=== PATIENT | male | born 1960 | race Asian ===

== ENCOUNTER 2017-05-26 06:41 | Day surgery (SDC) | payer OTHER ==
--- NOTE | 2017-05-25 13:47 | PREOPHP ---
DATE OF ADMISSION: 05/26/2017 REASON FOR ADMISSION: This 57-year-old patient is admitted for elective cataract surgery of the right eye. The patient states that the vision has decreased in the right eye over the past 2 years after having a retinal detachment requiring surgery in that eye. The patient denies prior history of eye disease or injury. The patient has a positive systemic history of non-insulin dependent diabetes mellitus and systemic hypertension. MEDICATIONS: 1. Metformin. 2. Losartan. 3. Aspirin (discontinued one week prior to surgery). 4. Simvastatin. ALLERGIES: THERE ARE NO KNOWN ALLERGIES. PHYSICAL EXAMINATION: On physical examination, the visual acuity with best correction is 20/40 in the right eye and 20/25 in the left eye. Slit lamp examination reveals nuclear sclerotic and posterior subcapsular cataract changes greater in the right eye than the left eye. Applanation tonometry is 15 mmHg. Examination of the retina is within normal limits. DIAGNOSIS: Cataract right eye. PLAN: Cataract extraction with lens implant, right eye. Dictated By: Mega Saenz MD /shamir/corinne /Document#: [id number]
[~2017-05-26] VITALS: Ht 160 cm; Wt 58.0 kg
[2017-05-26] VITALS (10 sets, daily range): BP systolic 144–178; BP diastolic 89–107; PULSE 67–75; RESP 14–19; Ht 160 cm; Wt 58.0 kg
[2017-05-26] MEDS ORDERED: TROPICAMIDE 1% 2 ML OPH RIGHT EYE SCH (07:30)
[2017-05-26] MEDS ORDERED: DICLOFENAC 0.1% 2.5 ML OPH RIGHT EYE SCH (07:30)
[2017-05-26] MEDS ORDERED: CYCLOPENTOLATE/PHENYLEPH 2 ML OPH RIGHT EYE SCH (07:30)
[2017-05-26] MEDS ORDERED: CIPROFLOXACIN 0.3% 2.5 ML OPH RIGHT EYE SCH (07:30)
[2017-05-26] MEDS ORDERED: LOSA50TA6 PO (07:50)
[2017-05-26] MEDS ORDERED: ASPI-664 PO (07:50)
[2017-05-26] MEDS ORDERED: METF500T4 PO (07:57)
[2017-05-26] MEDS ORDERED: HYALURONATE/CHONDROITIN 1ML OPH INJ ONE (08:03)
[2017-05-26] MEDS ORDERED: LIDOCAINE 4% (MPF) 5 ML INJ ONE (08:03)
[2017-05-26] MEDS ORDERED: EPINEPHrine 1 MG INJ ONE (08:03)
[2017-05-26] MEDS ORDERED: DEXAMETHASONE 4 MG/ML 1 ML INJ ONE (08:03)
[2017-05-26] MEDS ORDERED: CEFAZOLIN 1 GM INJ ONE (08:03)
[2017-05-26] MEDS ORDERED: CARBACHOL 0.01% 1.5 ML OPH INJ ONE (08:03)
[2017-05-26] MEDS ORDERED: FENTAnyl 50 MCG/ML VIAL ONE (08:34)
[2017-05-26] MEDS ORDERED: PROPOFOL 20 ML ONE (08:35)
[2017-05-26] MEDS ORDERED: HYALURONATE/CHONDROITIN 1ML OPH INJ IO ONE (09:00)
[2017-05-26] MEDS ORDERED: DEXAMETHASONE 4 MG/ML 1 ML INJ INJ ONE (09:00)
[2017-05-26] MEDS ORDERED: CEFAZOLIN 1 GM INJ INJ ONE (09:00)
[2017-05-26] MEDS ORDERED: CARBACHOL 0.01% 1.5 ML OPH INJ IO ONE (09:00)
--- NOTE | 2017-05-26 09:41 | OPR ---
Date/Time of Note Date/Time of Note DATE: 05/26/17 TIME: 09:40 Operative Report Postoperative Diagnosis same Operation/Procedure Performed cataract surgery od Surgeon: LADONNA FOOTE MD Anesthesia Type: MAC Estimated Blood Loss: none Transfusion Required: no Specimen: none Grafts/Implants lens implant Complications: no LADONNA FOOTE MD May 26, 2017 09:41
[2017-05-26] MEDS ORDERED: LABETALOL HCL 20MG INJ ONE (09:45)
[2017-05-26] MEDS ORDERED: LABETALOL HCL 20MG INJ IV PRN (09:47)
--- NOTE | 2017-05-26 09:55 | OPR ---
DATE OF OPERATION: 05/26/2017 PREOPERATIVE DIAGNOSIS: Cataract, right eye. POSTOPERATIVE DIAGNOSIS: Cataract, right eye. SURGEON: Mega Saenz MD VICE PRESIDENT OF [employer] AFFA[employer]: ANESTHESIA: Local standby. ANESTHESIOLOGIST: Austin Siu CRNA. OPERATION: Phacoemulsification with posterior chamber intraocular lens implant, right eye. PROCEDURE: The patient was brought to the operating room and placed on the table with an IV in place and the patient attached to an clinical research monitor. Oxygen was given via face mask. After some intravenous sedation was administered, local anesthesia was given using Xylocaine 2% with epinephrine, mixed with Marcaine 0.5%. This was given in a lid block and retrobulbar injection. The patient was then prepped and draped in the usual sterile manner. A wire lid speculum was inserted between the lids of the right eye. A Superblade was used to enter the anterior chamber at the corneoscleral limbus at the 10:30 o'clock position. A separate incision was made using a 3.0-mm keratome which entered the corneoscleral junction at the 12 o'clock position. Through this 3- mm opening, an irrigating cystotome was introduced into the anterior chamber. The chamber was filled with Viscoat and an anterior capsulotomy was performed. Balanced salt solution was then used for hydrodissection of the lens. A phacoemulsification handpiece was then brought into the field and introduced into the anterior chamber. The lens nucleus was emulsified using a deep groove and cracking the nucleus into quadrants. Following this, each quadrant was aspirated and emulsified at the pupillary margin. After this was completed, the irrigation/aspiration handpiece was brought to the field, introduced into the posterior chamber, and the lens cortical material was removed. When this was completed, additional Viscoat was injected into the anterior and posterior chambers. The 3-mm opening had its internal lips enlarged, and then the posterior chamber intraocular lens measuring 20.5 diopters ([employer], model LI61AO) was then injected into the posterior chamber using the lens injector system. After the leading haptic was introduced into the capsular bag and the lens optic was present in the center of the eye, the injector was removed and the trailing haptic was grasped with non-toothed forceps and introduced into the capsular fold superiorly. A [place] hook was then used to rotate the intraocular lens so that the lips were oriented in the horizontal meridian. One 10-0 nylon suture was placed across the wound. Prior to tying, the irrigation/aspiration handpiece was reintroduced into the anterior chamber to remove the Viscoat. Miochol was instilled to constrict the pupil, and then the 10-0 nylon suture was tied. The ends were cut short and then the knot was buried. Then, 0.5 mL of dexamethasone and 0.5 mL of Ancef were injected into the sub-Tenon space in the inferior fornix. Ciloxan drops were then placed on the surface of the eye. The speculum was removed and a patch was applied. The patient then left the operating room in satisfactory condition. Dictated By: Mega Saenz MD /shamir/phil /Document#: [id number]
[2017-05-26] MEDS ORDERED: ONDANSETRON 4 MG INJ IV PRN (10:00)
[2017-05-26] MEDS ORDERED: OXYCODONE/ACETAMINOPHEN (5/325) TAB PO PRN (10:00)
== END 2017-05-26 11:01 | disposition home or self-care (01) ==
LOC: SDS 06:41
PROVIDERS: ATTEND Ophthalmology
DX: H25.11 Age-related nuclear cataract, right eye (principal); E11.9 Type 2 diabetes mellitus without complications; I10 Essential (primary) hypertension
CPT/HCPCS: 66984; 82962; J0171; J0690; J1100; J3010; V2632; Z7512; Z7610

== ENCOUNTER → 2017-09-08 | Outpatient (CLI) | END | disposition home or self-care (01) ==

== ENCOUNTER 2019-03-08 05:50 | Day surgery (SDC) | payer OTHER ==
[2019-03-07 16:53] VITALS: BMI 22.2
[~2019-03-08] VITALS: Ht 157.5 cm; Wt 56.0 kg
[2019-03-08] VITALS (12 sets, daily range): BP systolic 123–144; BP diastolic 76–88; PULSE 78–88; RESP 11–20; Ht 157.5 cm; Wt 56.0 kg
[~2019-03-08 05:50] MED LIST: ASPI81TA52 PO; LOSA50TA14 PO; METF500T24 PO
--- NOTE | 2019-03-08 06:28 | PREOPHP ---
DATE OF ADMISSION: 03/08/2019 HISTORY OF PRESENT ILLNESS: This 57-year-old patient is admitted for elective cataract surgery of th e left eye. The patient has had progressive deterioration of vision in the left eye over the past ye ar and prior to that underwent cataract surgery in the right eye 2 years ago with good visual result. Patient had a prior history of retinal detachment surgery a number of years ago, with good visual r ecovery. Systemic history is positive for 7-history of qho-xogbejn-yliotdspy diabetes mellitus, syst emic hypertension, hypercholesterolemia. CURRENT MEDICATIONS: Include: 1. Metformin. 2. Losartan. 3. Simvastatin. ALLERGIES: There are no known allergies. PHYSICAL EXAMINATION: The visual acuity best corrected is 20/30 in the right eye and 20/40 in the le ft eye. Slit lamp examination reveals a posterior chamber intraocular lens in appropriate position. The left eye has a moderate nuclear sclerosis and posterior subcapsular opacity in the temporal half of the pupillary axis. Applanation tonometry is 18 mmHg in both eyes. Examination of the retina do es not reveal the presence of any diabetic retinopathy. Examination of the retina is noted to be wit hin normal limits without diabetic retinopathy. DIAGNOSIS: Nuclear sclerotic and posterior subcapsular cataract, left eye. PLAN: Cataract extraction with lens implant, left eye. The risks and alternatives to the surgery garner ve been discussed with the patient as well as the hope for improvement of visual acuity leading to gr eater ability to perform activities of daily living. The patient understands this and agrees to proc eed with surgery. Dictated By: LADONNA SAAVEDRA/BECCA Conf#: [id number] DID#: [id number]
[2019-03-08] MEDS ORDERED: PROPOFOL 20 ML ONE (06:53)
[2019-03-08] MEDS ORDERED: LIDOCAINE 4% (MPF) 5 ML INJ ONE (06:54)
[2019-03-08] MEDS ORDERED: CEFAZOLIN 1 GM INJ ONE (06:54)
[2019-03-08] MEDS ORDERED: NA HYALURONATE/CHONDROITIN 0.5 ML SYG ONE (06:55)
[2019-03-08] MEDS ORDERED: GENTAMICIN 80 MG INJ ONE (06:55)
[2019-03-08] MEDS ORDERED: TETRACAINE 0.5% 4 ML OPH ONE (06:55)
[2019-03-08] MEDS ORDERED: CARBACHOL 0.01% 1.5 ML OPH INJ ONE (06:55)
[2019-03-08] MEDS ORDERED: EPINEPHrine 1 MG INJ ONE (06:55)
[2019-03-08] MEDS ORDERED: DEXAMETHASONE 4 MG/ML 1 ML INJ ONE (06:55)
[2019-03-08] MEDS ORDERED: SOD CHLORIDE 0.9% 1,000 ML IV SCH (07:00)
[2019-03-08] MEDS ORDERED: BALANCED SALT SOLN OPH IRRIG 500 ML, GENTAMICIN 4 MG, EPINEPHrine 0.1 MG IRR SCH ×3 (07:00)
[2019-03-08] MEDS ORDERED: DICLOFENAC 0.1% 2.5 ML OPH OPER SCH (07:00)
[2019-03-08] MEDS ORDERED: MOXIFLOXACIN 0.5% 3 ML OPH OPER SCH (07:00)
[2019-03-08] MEDS ORDERED: CYCLOPENTOLATE/PHENYLEPH 2 ML OPH OPER SCH (07:00)
[2019-03-08] MEDS ORDERED: TROPICAMIDE 1% 15 ML OPH OPER SCH (07:00)
--- NOTE | 2019-03-08 07:05 | PREAC ---
Date/Time of Note Date/Time of Note DATE: 03/08/19 TIME: 07:03 Anesthesia Eval and Record Evaluation Time Pre-Procedure Interview DATE: 03/08/19 TIME: 07:03 Age 58 Sex male NPO: 8 hrs Preoperative diagnosis Cataract R. Eye Planned procedure CE/IOL Past Medical History Past Medical History: Includes Cardio: HTN Endo: Diabetes Surgery & Anesthesia Issues No known issue Meds Anticoagulation: No Beta Kb within 24 hr: No Reason Beta Kb not given: Pt. not on B-Kb Reported Medications Metformin Hcl* (Metformin Hcl*) 500 Mg Tablet, 500 MG PO WITH BREAKFAST DINNE, #30 TAB 05/26/17 Losartan Potassium* (Losartan Potassium*) 50 Mg Tablet, 50 MG PO DAILY, TAB 05/26/17 Aspirin (Low Dose Aspirin) 81 Mg Tablet.dr, 81 MG PO DAILY, #30 TAB 05/26/17 Current Medications Diclofenac Sodium (Voltaren 0.1%) 1 drop Q5 MIN X 3 OPER ; Start 03/08/19 at 07:00; Stop 03/08/19 at 19:00 Tropicamide (Mydriacyl 1%) 1 drop Q5 MIN X3 OPER ; Start 03/08/19 at 07:00; Stop 03/08/19 at 19:00 Moxifloxacin HCl (Vigamox) 1 drop Q5 MIN X 3 OPER ; Start 03/08/19 at 07:00; Stop 03/08/19 at 19:00 Cyclopentolate/ Phenylephrine (Cyclomydril Oph 2 ml) 1 drop Q5 MIN X 3 OPER ; Start 03/08/19 at 07:00; Stop 03/08/19 at 19:00 Sodium Chloride 1,000 ml @ 25 mls/hr Q24H IV ; Start 03/08/19 at 07:00; Stop 03/08/19 at 19:00 Sod Cl/Ca Cl/Mg Cl/Pot Cl/ Gentamicin Sulfate/ Epinephrine INTRA-OP IRR ; Start 03/08/19 at 07:00 Meds reviewed: Yes Allergies Coded Allergies: No Known Allergies (Verified Allergy, Unknown, 03/07/19) Allergies Reviewed: Yes Labs/Studies Labs Reviewed: Reviewed by anesthesiologist test: N/A Pre-procedure Exam Airway: Adequate mouth opening Mallampati: Mallampati II Teeth: Normal Lung: Normal Heart: Normal ASA Physical Status ASA physical status: 3 Emergency: None Planned Anesthetic General/MAC: MAC Pre-operative Attestations Prior to commencing anesthesia and surgery, the patient was re-evaluated, there was verification of: *The patient's identity *The results of appropriate recent lab work and preoperative vital signs *The above evaluation not changing prior to induction *Anesthetic plan, risk benefits, alternative and complications discussed with patient/family; questions answered; patient/family understands, accepts and wishes to proceed. ERICK SIMON MD March 08, 2019 07:05
[2019-03-08] MEDS ORDERED: LOSA50TA14 PO (07:19)
[2019-03-08] MEDS ORDERED: AMLO5TAB4 PO (07:19)
[2019-03-08] MEDS ORDERED: SITA100T11 PO (07:19)
[2019-03-08] MEDS ORDERED: METF100010 PO (07:20)
[2019-03-08] MEDS ORDERED: SIMV20TA PO (07:20)
[2019-03-08] MEDS ORDERED: METF500T24 PO (07:20)
--- NOTE | 2019-03-08 08:18 | PAC ---
Date/Time of Note Date/Time of Note DATE: 03/08/19 TIME: 08:18 Post-Anesthesia Notes Post-Anesthesia Note Activity: WNL Respiratory function: WNL Cardiovascular function: WNL Mental status: Baseline Pain reasonably controlled: Yes Hydration appropriate: Yes Nausea/Vomiting absent: Yes ERICK SIMON MD March 08, 2019 08:18
--- NOTE | 2019-03-08 08:20 | SIPON ---
Date/Time of Note Date/Time of Note DATE: 03/08/19 TIME: 08:19 Operative Report Preoperative Diagnosis cortical & nuclear cataract os Postoperative Diagnosis same Operation/Procedure Performed cataractg extraction with lens implant os Surgeon ladonna foote interior design assistant none Anesthesia: MAC Estimated blood loss: none Transfusion Required none Specimen none Grafts/Implants posterior chamber lens implant Complications none LADONNA FOOTE MD March 08, 2019 08:20
[2019-03-08] MEDS ORDERED: ACETAMINOPHEN 325 MG TAB PO ONE (08:30)
--- NOTE | 2019-03-08 08:50 | OPR ---
DATE OF OPERATION: 03/08/2019 PREOPERATIVE DIAGNOSIS: Cortical and nuclear sclerotic cataract, left eye. POSTOPERATIVE DIAGNOSIS: Cortical and nuclear sclerotic cataract, left eye. OPERATION PERFORMED: Cataract extraction with lens implant, left eye. SURGEON: Ladonna Foote M.D. ANESTHESIOLOGIST: Jose Pascual M.D. ANESTHESIA: Local standby. PROCEDURE: The patient was brought to the operating room and placed on the table with an IV in place and the patient attached to an cafeteria monitor. Oxygen was given via face mask. After some intravenous sedation was administered, local anesthesia was given using Xylocaine 2% with epinephrine, mixed with Marcaine 0.5%. This was given in a lid block and retrobulbar injection. The patient was then prepped and draped in the usual sterile manner. A wire lid speculum was inserted between the lids of the left eye. A Superblade was used to enter th e anterior chamber at the corneoscleral limbus at the 10:30 o'clock position. A separate incision wa s made using a 3.0-mm keratome which entered the corneoscleral junction at the 12 o'clock position. Through this 3-mm opening, an irrigating cystotome was introduced into the anterior chamber. The dinora mber was filled with Viscoat and an anterior capsulotomy was performed. Balanced salt solution was t hen used for hydrodissection of the lens. A phacoemulsification handpiece was then brought into the field and introduced into the anterior chamber. The lens nucleus was emulsified using a deep groove and cracking the nucleus into quadrants. Following this, each quadrant was aspirated and emulsified at the pupillary margin. After this was completed, the irrigation/aspiration handpiece was brought to the field, introduced in to the posterior chamber, and the lens cortical material was removed. When this was completed, addit ional Viscoat was injected into the anterior and posterior chambers. The 3-mm opening had its internal lips enlarged, and then the posterior chamber intraocular lens stalin uring 21.0 diopters ([employer] Model LI61AO) was then injected into the posterior c hamber using the lens injector system. After the leading haptic was introduced into the capsular bag and the lens optic was present in the center of the eye, the injector was removed and the trailing h aptic was grasped with non-toothed forceps and introduced into the capsular fold superiorly. A Sins[place] ey hook was then used to rotate the intraocular lens so that the lips were oriented in the horizontal meridian. One 10-0 nylon suture was placed across the wound. Prior to tying, the irrigation/aspiration handpiece was reintroduced into the anterior chamber to rem ove the Viscoat. Miochol was instilled to constrict the pupil, and then the 10-0 nylon suture was ti ed. The ends were cut short and then the knot was buried. Then, 0.5 mL of dexamethasone and 0.5 mL of Ancef were injected into the sub-Tenon space in the infer ior fornix. Ciloxan drops were then placed on the surface of the eye. The speculum was removed and a patch was applied. The patient then left the operating room in satisfactory condition. Dictated By: LADONNA SAAVEDRA/BECCA Conf#: [id number] DID#: [id number] CC: LADONNA FOOTE MD;*EndCC*
== END 2019-03-08 09:53 | disposition home or self-care (01) ==
LOC: SDS 05:50
PROVIDERS: ATTEND Ophthalmology
DX: H25.12 Age-related nuclear cataract, left eye (principal); I10 Essential (primary) hypertension; E11.9 Type 2 diabetes mellitus without complications; Z79.84 Long term (current) use of oral hypoglycemic drugs
CPT/HCPCS: 66984; 82962; J0171; J0690; J1100; J1580; V2632; Z7512; Z7610